=== PATIENT | male | born 1960 | race Two or more races ===

== ENCOUNTER 2016-06-02 14:06 | Emergency (ER) | payer OTHER ==
[~2016-06-02] VITALS: Ht 165.1 cm; Wt 77.1 kg
[2016-06-02] MEDS ORDERED: ZITHROMAX250 MG ORAL (14:23)
[2016-06-02] MEDS ORDERED: PROAIR HFA8.5 GM INH (14:23)
[2016-06-02] MEDS ORDERED: PROMETHAZINE-D118 ML ORAL (14:23)
[2016-06-02 14:30] VITALS: BP 133/74
[2016-06-02 14:43] VITALS: BP 133/74
--- NOTE | 2016-06-02 15:19 | Emergency Room Report ---
History of Present Illness General Chief Complaint: Upper Respiratory Illness Source: Patient Present Illness [facility] The patient is a 56-year-old male presenting for productive cough and subjective fevers for the past week. The patient was seen at urgent care and diagnosed with an upper respiratory infection and given a prescription for promethazine DM and albuterol which have mildly been helping. The patient states that he has run out of his cough medication and cough has returned. The patient describes an 8/10 dull ache to the mid chest which occurs only with coughing. Pain is nonradiating. Patient denies any sick contacts or recent travel. Patient denies other symptoms including N, V, chills, night sweats, hemoptysis, SOB Allergies: Coded Allergies: No Known Allergies (Unverified , 06/02/16) Patient History Past Medical History: see triage record Pertinent Family History: none Reviewed Nursing Documentation: PMH: Agreed, PSxH: Agreed Nursing Documentation-PM Past Medical History: No History, Except For Review of Systems All Other Systems: negative except mentioned in HPI Physical Exam Vital Signs Date Time Temp Pulse Resp B/P Pulse Ox O2 Delivery O2 Flow Rate FiO2 06/02/16 14:08 100.6 111 24 133/74 94 Room Air Sp02 EP Interpretation: reviewed, normal General Appearance: no apparent distress, alert, GCS 15, non-toxic Head: normocephalic, atraumatic Eyes: bilateral eye PERRL, bilateral eye normal inspection ENT: hearing grossly normal, normal pharynx, no angioedema, normal voice Neck: full range of motion, supple/symm/no masses Respiratory: chest non-tender, lungs clear, normal breath sounds, wheezing - diffuse Cardiovascular #1: regular rate, rhythm, no edema Musculoskeletal: back normal, gait/station normal, normal range of motion, non- tender Neurologic: alert, oriented x3, responsive, motor strength/tone normal, sensory intact, speech normal Psychiatric: judgement/insight normal, memory normal, mood/affect normal, no suicidal/homicidal ideation Skin: normal color, no rash, warm/dry, well hydrated Lymphatic: no adenopathy Medical Decision Making PA Attestation Dr. Crystal is my supervising physician. Patient management was discussed with my supervising physician Diagnostic Impression: Primary Impression: Bronchitis ER Course The patient is a 56-year-old male presenting for productive cough and subjective fevers for the past week. Differential diagnosis include but not limited to pharyngitis, sinusitis, AOM, bronchitis, PNA PE: No apparent distress. No TTP over maxillary or frontal sinuses. Lungs: diffuse wheezing. No accessory muscle use. No resp distress Heart: RRR, no abnormal heart sounds Ears: external auditory canal clear. Non erythematous. Bilat TM intact. Cone of light present bilat. No bulging of TM. No serous fluid seen. no nasal D/C Nor cervical lymphad No tonsillar exudate. Uvula midline.Oropharynx non erythematous The patient will be discharged home with a prescription for azithromycin, cough medication, and albuterol Last Vital Signs Date Time Temp Pulse Resp B/P Pulse Ox O2 Delivery O2 Flow Rate FiO2 06/02/16 14:08 100.6 111 24 133/74 94 Room Air Status: improved Disposition: HOME, SELF-CARE Condition: Improved Scripts Azithromycin* (ZITHROMAX*) 250 Mg Tablet 250 MG ORAL DAILY, #6 TAB 0 Refills Take two tables once daily for 1 day, then one tablet once daily for 4 days. Prov: CLAUDIO LOPEZ 06/02/16 Albuterol Sulfate* (PROAIR HFA*) 8.5 Gm Hfa.aer.ad 2 PUFFS INH Q6H, #8.5 GM 0 Refills Prov: CLAUDIO LOPEZ 06/02/16 D-Methorphan Hb/Prometh Hcl* (PROMETHAZINE-DM SYRUP*) 118 Ml Syrup 5 ML ORAL Q6H Y for For Cough, #118 ML 0 Refills Prov: CLAUDIO LOPEZ 06/02/16 Referrals: TRENT DOLAN,REFERRING (PCP) Patient Instructions: Smoking Cessation, Tips for Success, Cough, Adult Additional Instructions: I discussed my findings with the patient. All questions and concerns have been answered. Treatment and medication compliance have been addressed. I advised the patient that they need to follow up with PMD in 3-5 days. Return to ED if pain remains or worsens, cough worsens or remains, you notice blood in your sputum, you notice wheezing, you experience a fever, or if needed for any reason. Patient verbalized understanding of discharge instructions. CLAUDIO LOPEZ Jun 02, 2016 15:19
== END 2016-06-02 14:43 | disposition home or self-care (01) ==
LOC: EMR 14:15
DX: J40 Bronchitis, not specified as acute or chronic (principal)
CPT/HCPCS: 99284